=== PATIENT | female | born 2005 | race Caucasian/White ===

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

== ENCOUNTER 2025-02-05 12:48 | Emergency (ER) | payer MEDICAID | END 2025-02-05 15:11 | disposition home or self-care (01) | LOC: JP.ED 12:48 | DX: S93.402A Sprain of unspecified ligament of left ankle, initial encounter (principal); Z86.16 Personal history of COVID-19; Z79.899 Other long term (current) drug therapy; X50.1XXA Overexertion from prolonged static or awkward postures, initial encounter | CPT/HCPCS: 73610-LT; 99283 ==

== ENCOUNTER 2025-09-10 09:13 | Emergency (ER) | payer MEDICAID | END 2025-09-10 10:35 | disposition home or self-care (01) | LOC: JP.ED 09:13 | DX: H00.014 Hordeolum externum left upper eyelid (principal); Z79.899 Other long term (current) drug therapy; Z86.16 Personal history of COVID-19 | CPT/HCPCS: 99283 ==